=== PATIENT | female | born 1970 | race Caucasian/White ===

== ENCOUNTER → 2017-02-23 | Outpatient (CLI) | payer OTHER ==
--- NOTE | 2017-02-23 17:07 | RAD ---
Examination: Ultrasound pelvis History: History of pelvic pain Comparison: None available Technique: Transabdominal, transvaginal ultrasound of the pelvis Findings: The uterus measures 9.5 x 6.4 x 9.2 cm There is a heterogeneous echogenicity identified in the uterus measuring 4.4 x 4.4 x 5.6 cm likely a fibroid. The endometrium could not be clearly identified. The right ovary measures 4.9 x 2.2 x 4.0 cm. Blood flow identified in the right ovary. The left ovary measures 4.8 x 2.1 x 3.2 cm Blood flow identified in the left ovary. Small amount of free fluid identified in the cul-de-sac. Impression: 1. 5.4 cm heterogeneous echogenicity identified in the uterus likely fibroid. The endometrium could not be clearly identified due to fibroid. 2. Minimal free fluid identified in the cul-de-sac.
== END | disposition home or self-care (01) ==
LOC: US 15:53
DX: R10.2 Pelvic and perineal pain (principal)
CPT/HCPCS: 76830; 76856